=== PATIENT | male | born 1965 | race Caucasian/White ===

== ENCOUNTER 2024-12-21 21:27 | Emergency (ER) | payer SELFPAY ==
[2024-12-21] MEDS: cefTRIAXone 1 GM, Lidocaine 1% 2.1 ML IM ONE (22:06)
== END 2024-12-21 22:19 | disposition home or self-care (01) ==
LOC: JD.ED 21:27
DX: L03.021 Acute lymphangitis of right finger (principal); Z79.899 Other long term (current) drug therapy
CPT/HCPCS: 96372; 99283; J0696; J2003

== ENCOUNTER 2025-01-22 22:17 | Emergency (ER) | payer SELFPAY ==
[2025-01-22] MEDS: Mupirocin Oint 22 GM Tube TOP ONE (23:48)
[2025-01-22] MEDS: Levofloxacin 750 MG Tab PO SCH (23:49)
[2025-01-22] MEDS: cefTRIAXone 1 GM Vial IM ONE (23:49)
== END 2025-01-22 23:54 | disposition home or self-care (01) ==
LOC: JD.ED 22:17
DX: L08.9 Local infection of the skin and subcutaneous tissue, unspecified (principal); I10 Essential (primary) hypertension; E78.00 Pure hypercholesterolemia, unspecified; Z79.899 Other long term (current) drug therapy; Z86.16 Personal history of COVID-19
CPT/HCPCS: 96372; 99283; A9270; J0696